=== PATIENT | male | born 1995 | race Caucasian/White ===

== ENCOUNTER 2021-04-13 10:36 | Emergency (ER) | payer OTHER ==
[2021-04-13 10:54] VITALS: BP 156/100; PULSE 106
--- NOTE | 2021-04-13 10:59 | EDM.PDOC ---
ED [facility] GENERAL MEDICAL PROBLEM - General Chief Complaint: General Stated Complaint: fell 15ft right side pain Time Seen by Provider: 04/13/21 10:50 Source of Information: Reports: Patient History Limitations: Reports: No Limitations - History of Present Illness INITIAL COMMENTS - FREE TEXT/NARRATIVE: Patient 25-year-old healthy male presenting with a chief complaint of right-si ded pain. Patient states he had a fall 2 days ago. 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 Patient states he landed on his right side. He did not strike his head or have loss of consciousness. Patient states the pain was only mild but has progressed became more severe. He reports pain primarily in the right side of his chest and right upper abdomen. No radiation of symptoms. Patient states pain is worse with deep breathing. Naprosyn has not improved symptoms at all. He denies vomiting, diarrhea, lower extremity symptoms such as numbness, tingling or weakness. Patient ambulatory today as well as after the injury. Right Chest Pain Score (Numeric/FACES): 5 - Related Data Allergies Allergy/AdvReac Type Severity Reaction Status Date / Time ibuprofen [From Motrin] Allergy Intermediate Burning Verified 04/13/21 10:54 tramadol Allergy Intermediate Hives Verified 04/13/21 10:54 codeine Allergy Cannot Verified 04/13/21 10:54 Remember Home Meds: Home Meds Cyclobenzaprine [Flexeril] 10 mg PO BID #20 tab 04/13/21 [Rx] Past Medical History - Past Health History Medical/Surgical History: Denies Medical/Surgical History Musculoskeletal History: Reports: Fracture Psychiatric History: Reports: Anxiety - Past Surgical History GI Surgical History: Reports: Hernia, Inguinal Social & Family History - Family History Family Medical History: No Pertinent Family History - Tobacco Use Tobacco Use Status *Q: Current Every Day Tobacco User Years of Tobacco use: 10 Packs/Tins Daily: 1 - Caffeine Use Caffeine Use: Reports: Coffee - Alcohol Use Days Per Week of Alcohol Use: 2 Number of Drinks Per Day: 2 Total Drinks Per Week: 4 - Recreational Drug Use Recreational Drug Use: No - Living Situation & Occupation Living situation: Reports: with Family ED ROS GENERAL - Review of Systems Review Of Systems: See Below Free Text/Narrative/Comment: In addition to that documented in the HPI above, the additional ROS was obtained: Constitutional: Denies fevers or chills Eyes: Denies vision changes ENMT: Denies sore throat CV: Denies chest pain Resp: Denies SOB GI: Denies vomiting or diarrhea : Denies painful urination MSK: Denies recent trauma Skin: Denies new rashes Neuro: Denies new numbness or tingling or weakness Endocrine: Denies unexpected weight loss Heme: Denies bleeding disorders ED EXAM, GENERAL - Physical Exam Exam: See Below Free Text/Narrative:: I have reviewed the triage vital signs Const: Well nourished, well developed, appears stated age. Comfortable in appearance. Nontoxic. Eyes: Pupils Equal and reactive to light bilaterally, no conjunctival injection HENT: No signs of trauma or swelling, Neck supple without meningismus. No midline cervical spinal tenderness or step-offs. Full range of motion of the neck. No areas of tenderness, ecchymosis or swelling to the head. CV: Regular Rate Rhythm, Warm, well-perfused extremities. equal pulses in all extremities. RESP: Unlabored respiratory effort. Bilateral breath sounds. Right-sided chest wall tenderness. No evidence of ecchymosis. No obvious deformities to the chest wall. GI: soft, non-tender, non-distended, no masses MSK: No gross deformities appreciated. Demonstrates full range of motion of the bilateral upper and lower extremities. No ecchymosis, lacerations or areas of swelling. Skin: Warm, dry. No rashes Neuro: GCS 15. Alert, finisher wallboard and plasterboard II-XII grossly intact. Sensation and motor function of extremities grossly intact. Psych: Appropriate mood and affect. Course - Vital Signs Last Recorded V/S: Last Vital Signs Temp 36.8 C 04/13/21 10:49 Pulse 106 H 04/13/21 10:49 Resp 16 04/13/21 10:49 BP 156/100 H 04/13/21 10:49 Pulse Ox 97 04/13/21 10:49 - Orders/Labs/Meds Labs: Laboratory Tests 04/13/21 04/13/21 Range/Units 11:00 11:00 WBC 5.01 (4.23-9.07) K/mm3 RBC 4.68 (4.63-6.08) M/mm3 Hgb 15.9 (13.7-17.5) gm/dl Hct 46.0 (40.1-51.0) % MCV 98.3 H D (79.0-92.2) fl MCH 34.0 H (25.7-32.2) pg MCHC 34.6 (32.2-35.5) g/dl RDW Std Deviation 43.3 (35.1-43.9) fL Plt Count 309 (163-337) K/mm3 MPV 8.9 L (9.4-12.3) fl Neut % (Auto) 39.1 (34.0-67.9) % Lymph % (Auto) 47.3 (21.8-53.1) % [place] % (Auto) 11.0 (5.3-12.2) % Eos % (Auto) 1.0 (0.8-7.0) Baso % (Auto) 1.4 H (0.1-1.2) % Neut # (Auto) 1.96 (1.78-5.38) K/mm3 Lymph # (Auto) 2.37 (1.32-3.57) K/mm3 [place] # (Auto) 0.55 (0.30-0.82) K/mm3 Eos # (Auto) 0.05 (0.04-0.54) K/mm3 Baso # (Auto) 0.07 (0.01-0.08) K/mm3 Sodium 140 (136-145) mEq/L Potassium 4.0 (3.5-5.1) mEq/L Chloride 103 (98-107) mEq/L Carbon Dioxide 24 (21-32) mEq/L Anion Gap 17.0 H (5-15) BUN 13 (7-18) mg/dL Creatinine 0.9 (0.7-1.3) mg/dL Est Cr Clr Drug Dosing 131.31 mL/min Estimated GFR (MDRD) > 60 (>60) mL/min BUN/Creatinine Ratio 14.4 (14-18) Glucose 104 H (70-99) mg/dL Calcium 8.9 (8.5-10.1) mg/dL Total Bilirubin 0.9 (0.2-1.0) mg/dL AST 52 H (15-37) U/L ALT 55 (16-63) U/L Alkaline Phosphatase 86 (46-116) U/L Total Protein 7.4 (6.4-8.2) g/dl Albumin 4.2 (3.4-5.0) g/dl Globulin 3.2 gm/dL Albumin/Globulin Ratio 1.3 (1-2) Meds: Medications Discontinued Medications Generic Name Dose Route Start Last Admin Trade Name Macy PRN Reason Stop Dose Admin Fentanyl 50 mcg 04/13/21 11:02 04/13/21 11:07 Fentanyl 100 Mcg/2 Ml Sdv IVPUSH 04/13/21 11:03 50 mcg ONETIME ONE Administration Iopamidol 50 ml 04/13/21 11:05 04/13/21 11:22 Iopamidol 612 Mg/Ml 50 Ml Sdv IVPUSH 04/13/21 11:06 50 ml ONETIME ONE Administration Iopamidol 100 ml 04/13/21 11:05 04/13/21 11:22 Iopamidol 612 Mg/Ml 100 Ml Bottle IVPUSH 04/13/21 11:06 100 ml ONETIME ONE Administration Sodium Chloride 10 ml 04/13/21 11:05 04/13/21 11:22 Sodium Chloride 0.9% 10 Ml Syringe FLUSH 10 ml ONETIME PRN Administration IV FLUSH Departure - Departure Time of Disposition: 11:44 Disposition: Home, Self-Care 01 Clinical Impression: Intercostal muscle pain - Discharge Information Prescriptions: Cyclobenzaprine [Flexeril] 10 mg PO BID #20 tab Instructions: Muscle Pain, Adult Referrals: PCP,None [Primary Care Provider] - Forms: ED Department Discharge Sepsis Event Note (ED) - Evaluation Sepsis Screening Result: No Definite Risk - Focused Exam Vital Signs: Vital Signs Temp Pulse Resp BP Pulse Ox 04/13/21 10:49 36.8 C 106 H 16 156/100 H 97 - Assessment/Plan Assessment:: Patient 25-year-old male presents to emergency room with a fall and right-sided chest pain. Patient had GCS 15 on arrival in the emergency room. Vital signs remained stable. Unremarkable ER course. Laboratory studies and CT did not show any acute abnormalities. No evidence of traumatic injury such as rib fracture, pulmonary contusion, liver injury. At this point, patient feels better will be given discharge instructions. All questions were addressed and answered. Patient agrees with plan of care.
[2021-04-13] MEDS ORDERED: fentaNYL 100 MCG/2 ML SDV IVPUSH ONE (11:02)
[2021-04-13] MEDS ORDERED: Iopamidol 612 MG/ML 50 ML SDV IVPUSH ONE (11:05)
[2021-04-13] MEDS ORDERED: Iopamidol 612 MG/ML 100 ML Bottle IVPUSH ONE (11:05)
[2021-04-13] MEDS: Sodium Chloride 0.9% 10 ML Syringe FLUSH PRN ×2 (11:10→11:22)
--- NOTE | 2021-04-13 11:41 | CT ---
CT chest Technique: Multiple axial sections through the chest were obtained. Intravenous contrast was utilized. Reconstructed coronal and sagittal images were obtained. Comparison: Prior CT chest study of 04/29/14. Findings: Thoracic aorta appears unremarkable. No mediastinal adenopathy is seen. No mediastinal hematoma is seen. No axillary adenopathy is seen. No pericardial fluid is seen. Lung window settings were reviewed. No acute parenchymal change is seen. No pleural effusion is seen. No pneumothorax is seen. Bone window settings were reviewed. Slight Schmorl's node deformities are seen within the lower thoracic spine. No definite acute osseous abnormality is appreciated. Impression: 1. Developmental spine findings as described above. 2. Nothing acute is appreciated on CT study of the chest. Diagnostic code #2 CT abdomen and pelvis Technique: Multiple axial sections were obtained from above the dome of the diaphragm inferiorly through the pubic symphysis. Intravenous contrast was utilized. No oral contrast has been given. Reconstructed coronal and sagittal images were obtained. Delayed images were also obtained through the bladder. Comparison: Prior CT abdomen and pelvis exam of 04/29/14. Findings: Liver contains no focal parenchymal abnormality. Spleen appears within normal limits. Adrenal glands appear unremarkable. Pancreas shows no discrete abnormality. Gallbladder contains no calcified gallstones. Kidneys show symmetric contrast enhancement. No hydronephrosis or other abnormality is seen. Abdominal aorta shows no aneurysm. No retroperitoneal adenopathy is seen. No mesenteric abnormalities are seen. Appendix is seen which is normal. No pelvic mass or adenopathy is seen. No free fluid or inflammatory change is seen. Delayed images show contrast within the distal ureters and within the bladder. Bone window settings were reviewed. No acute osseous finding is appreciated. Impression: 1. Nothing acute is seen on CT study of the abdomen and pelvis. Diagnostic code #1
== END 2021-04-13 11:55 | disposition home or self-care (01) ==
LOC: JD.ED 10:36
DX: R07.82 Intercostal pain (principal); Z88.5 Allergy status to narcotic agent; Z88.8 Allergy status to other drugs, medicaments and biological substances; Z72.0 Tobacco use
CPT/HCPCS: 36415; 71260; 74177; 80053; 85025; 96374; 99284; J3010; Q9967

== ENCOUNTER 2022-01-15 03:08 | Emergency (ER) | payer BC ==
[2022-01-15] MEDS ORDERED: Ketorolac 15 MG/ML SDV IVPUSH ONE (04:05)
[2022-01-15] MEDS ORDERED: Iopamidol 612 MG/ML 100 ML Bottle IVPUSH ONE (04:15)
[2022-01-15] MEDS ORDERED: Morphine 4 MG/ML Syringe IVPUSH ONE (05:17)
[2022-01-15] MEDS ORDERED: Lidocaine 1% with EPINEPHrine 1:100,000 20 ML MDV INJECT ONE (05:21)
[2022-01-15] MEDS ORDERED: Morphine 4 MG/ML VIAL IVPUSH ONE ×2 (06:24→06:38)
[2022-01-15] MEDS ORDERED: Morphine 4 MG/ML Syringe ONE (06:41)
[2022-01-15 07:00] VITALS: BP 146/104; PULSE 88
== END 2022-01-15 06:50 | disposition home or self-care (01) ==
LOC: JD.ED 03:08
DX: K61.0 Anal abscess (principal); F17.210 Nicotine dependence, cigarettes, uncomplicated; Z88.5 Allergy status to narcotic agent; Z88.6 Allergy status to analgesic agent
CPT/HCPCS: 36415; 46050; 74177; 80053; 85025; 96374; 96375; 96376; 99283; J1885; J2270; Q9967; 10060; 99284

== ENCOUNTER 2022-02-15 08:04 | Day surgery (SDC) | payer BC ==
[~2022-02-15 08:04] MED LIST: Lactated Ringers 1,000 ML IV SCH; Lidocaine 1%/Sod Bicarbonate in NS 8.4% 1 ML Syringe IDERM PRN; Sodium Chloride 0.9% 10 ML Syringe FLUSH PRN; Sodium Chloride 0.9% 10 ML Syringe FLUSH SCH; metroNIDAZOLE/Normal Saline 500 MG in Premix Bag 1 BAG IV SCH
[2022-02-15] MEDS ORDERED: Propofol 200 MG/20 ML SDV ONE ×2 (09:07→12:29)
[2022-02-15] MEDS ORDERED: fentaNYL 100 MCG/2 ML SDV ONE (09:07)
[2022-02-15] MEDS ORDERED: Midazolam 1 MG/ML 2 ML SDV ONE (09:07)
[2022-02-15] MEDS ORDERED: Ondansetron 4 MG/2 ML SDV ONE (09:11)
[2022-02-15] MEDS ORDERED: Lidocaine 1% 2 ML ONE ×2 (09:11)
[2022-02-15] MEDS ORDERED: Rocuronium 50 MG/5 ML Vial ONE (09:11)
[2022-02-15] MEDS ORDERED: Bupivacaine 0.5% 10 ML SDV ONE (09:17)
[2022-02-15] MEDS ORDERED: Lidocaine 1% with EPINEPHrine 1:100,000 10 ML MDV ONE (09:17)
[2022-02-15] MEDS ORDERED: Albuterol/Ipratropium 3.0-0.5 MG/3 ML Neb Soln NEB ONE (09:30)
[2022-02-15] MEDS ORDERED: Citric Acid/Sodium Citrate Solution 30 ML Cup PO ONE (09:30)
[2022-02-15] MEDS ORDERED: Sugammadex Sodium 200 MG/2 ML VIAL ONE (09:52)
[2022-02-15] MEDS ORDERED: Dexmedetomidine 200 MCG/2 ML SDV ONE (10:53)
[2022-02-15] MEDS ORDERED: Ondansetron 4 MG/2 ML SDV IVPUSH PRN (11:30)
[2022-02-15] MEDS ORDERED: HYDROmorphone 0.5 MG/0.5 ML Syringe IVPUSH PRN (11:30)
[2022-02-15] MEDS ORDERED: fentaNYL 100 MCG/2 ML SDV IVPUSH PRN (11:30)
[2022-02-15] MEDS ORDERED: Lactated Ringers 1,000 ML ONE (11:41)
[2022-02-15] MEDS ORDERED: oxyCODONE 5 MG Tab PO ONE (13:00)
[2022-02-15 14:23] VITALS: BP 131/101; PULSE 86
== END 2022-02-15 12:20 | disposition home or self-care (01) ==
LOC: JD.SDS 08:04
PROVIDERS: ATTEND Surgery
DX: K61.0 Anal abscess (principal); F41.1 Generalized anxiety disorder; I10 Essential (primary) hypertension; G47.00 Insomnia, unspecified; K21.9 Gastro-esophageal reflux disease without esophagitis; D64.9 Anemia, unspecified; F17.210 Nicotine dependence, cigarettes, uncomplicated; Z88.5 Allergy status to narcotic agent; Z88.8 Allergy status to other drugs, medicaments and biological substances
CPT/HCPCS: 46050; A9270; J2250; J2405; J2704; J3010; J3490; J7120; J7620-GY

== ENCOUNTER 2022-03-07 19:24 | Emergency (ER) | payer BC ==
[2022-03-07 21:17] VITALS: BP 150/90; PULSE 106
== END 2022-03-07 22:06 | disposition left against medical advice (07) ==
LOC: JD.ED 19:24
DX: Z53.21 Procedure and treatment not carried out due to patient leaving prior to being seen by health care provider (principal)

== ENCOUNTER 2022-04-06 12:31 | Emergency (ER) | payer SELFPAY ==
[2022-04-06 13:20] VITALS: BP 182/109; PULSE 136
[2022-04-06] MEDS ORDERED: Ondansetron 4 MG/2 ML SDV IVPUSH ONE (13:39)
[2022-04-06] MEDS ORDERED: Sodium Chloride 0.9% 1,000 ML IV ONE ×3 (13:39→17:58)
[2022-04-06] MEDS ORDERED: LORazepam 2 MG/ML SDV IVPUSH ONE ×2 (13:40→15:53)
[2022-04-06] MEDS ORDERED: Potassium Chloride 20 MEQ Tab.ER PO ONE (14:13)
[2022-04-06] MEDS: Potassium Chloride 10 MEQ in Premix Bag 1 BAG IV SCH ×4 (14:33→19:35)
[2022-04-06] MEDS: Magnesium Sulfate/Water 2 GM in Premix Bag 1 BAG IV SCH ×2 (19:54→21:34)
[2022-04-06] MEDS ORDERED: LORazepam 2 MG/ML SDV IVPUSH PRN (22:25)
[2022-04-06] MEDS ORDERED: Ondansetron 4 MG/2 ML SDV IVPUSH PRN (22:26)
== END 2022-04-06 23:00 | disposition home or self-care (01) ==
LOC: JD.ED 12:31
DX: F10.230 Alcohol dependence with withdrawal, uncomplicated (principal); E83.42 Hypomagnesemia; E87.6 Hypokalemia; I10 Essential (primary) hypertension; K21.9 Gastro-esophageal reflux disease without esophagitis; Z72.0 Tobacco use; Z88.6 Allergy status to analgesic agent; Z88.5 Allergy status to narcotic agent; Z79.899 Other long term (current) drug therapy
CPT/HCPCS: 36415; 80053; 80307; 83735; 85025; 96361; 96365; 96366; 96367; 96375; 96376; 99284; A9270; J2060; J2405; J3475; J3480; J7030

== ENCOUNTER 2022-04-30 08:21 | Emergency (ER) | payer SELFPAY ==
[2022-04-30] MEDS ORDERED: Ondansetron 4 MG/2 ML SDV IVPUSH ONE (08:43)
[2022-04-30] MEDS ORDERED: Sodium Chloride 0.9% 1,000 ML IV ONE (08:44)
[2022-04-30] MEDS ORDERED: Sodium Chloride 0.9% 10 ML Syringe FLUSH PRN (08:50)
[2022-04-30] MEDS ORDERED: LORazepam 2 MG/ML SDV IVPUSH ONE ×2 (08:50→13:22)
[2022-04-30] MEDS: Potassium Chloride 10 MEQ in Premix Bag 1 BAG IV SCH ×3 (10:38→13:01)
[2022-04-30 15:23] VITALS: BP 154/106; PULSE 94
== END 2022-04-30 14:18 | disposition home or self-care (01) ==
LOC: JD.ED 08:21
DX: K92.0 Hematemesis (principal); F10.930 Alcohol use, unspecified with withdrawal, uncomplicated; E87.6 Hypokalemia; I10 Essential (primary) hypertension; K21.9 Gastro-esophageal reflux disease without esophagitis; Z88.5 Allergy status to narcotic agent; Z88.8 Allergy status to other drugs, medicaments and biological substances; Z79.899 Other long term (current) drug therapy
CPT/HCPCS: 36415; 80053; 80306; 80307; 83735; 85025; 93005; 96361; 96365; 96375; 96376; 99285; J2060; J2405; J3480; J3490; J7030

== ENCOUNTER 2022-05-09 14:32 | Emergency (ER) | payer SELFPAY ==
[2022-05-09] MEDS ORDERED: Sodium Chloride 0.9% 1,000 ML IV ONE ×3 (15:09→18:25)
[2022-05-09] MEDS ORDERED: Sodium Chloride 0.9% 10 ML Syringe FLUSH PRN (15:09)
[2022-05-09] MEDS ORDERED: Metoclopramide 10 MG/2 ML SDV IVPUSH ONE (15:09)
[2022-05-09] MEDS ORDERED: Potassium Chloride 20 MEQ Tab.ER PO ONE (16:21)
[2022-05-09] MEDS ORDERED: LORazepam 2 MG/ML SDV IVPUSH ONE (16:38)
[2022-05-09 19:35] VITALS: BP 117/89; PULSE 86
== END 2022-05-09 19:05 | disposition left against medical advice (07) ==
LOC: JD.ED 14:32
DX: F10.10 Alcohol abuse, uncomplicated (principal); I10 Essential (primary) hypertension; Z88.6 Allergy status to analgesic agent; Z88.5 Allergy status to narcotic agent; Z79.899 Other long term (current) drug therapy
CPT/HCPCS: 36415; 80053; 80306; 80307; 83735; 84484; 85025; 85610; 93005; 96361; 96374; 96375; 99285; A9270; J2060; J2765; J3490; J7030; 93010; 99284

== ENCOUNTER 2022-05-16 17:56 | Emergency (ER) | payer SELFPAY ==
[2022-05-16] MEDS ORDERED: Sodium Chloride 0.9% 10 ML Syringe FLUSH PRN (19:33)
[2022-05-16] MEDS ORDERED: Ondansetron 4 MG/2 ML SDV IVPUSH ONE (19:33)
[2022-05-16] MEDS ORDERED: LORazepam 2 MG/ML SDV IVPUSH ONE ×2 (19:34→20:49)
[2022-05-16] MEDS ORDERED: Famotidine 20 MG/2 ML SDV IVPUSH ONE (19:35)
[2022-05-16] MEDS ORDERED: Sodium Chloride 0.9% 1,000 ML IV SCH (19:45)
[2022-05-16 21:24] VITALS: BP 130/90; PULSE 94
== END 2022-05-16 21:24 | disposition home or self-care (01) ==
LOC: JD.ED 17:56
DX: F10.120 Alcohol abuse with intoxication, uncomplicated (principal); I10 Essential (primary) hypertension; K21.9 Gastro-esophageal reflux disease without esophagitis; Z88.5 Allergy status to narcotic agent; Z88.8 Allergy status to other drugs, medicaments and biological substances; Z79.899 Other long term (current) drug therapy; Y90.1 Blood alcohol level of 20-39 mg/100 ml
CPT/HCPCS: 36415; 80053; 80306; 80307; 83735; 85025; 93005; 96361; 96374; 96375; 96376; 99284; J2060; J2405; J3490; J7030

== ENCOUNTER 2022-05-25 21:39 | Emergency (ER) | payer SELFPAY ==
[2022-05-25] MEDS ORDERED: Sodium Chloride 0.9% 10 ML Syringe FLUSH PRN (22:45)
[2022-05-25] MEDS ORDERED: Ondansetron 4 MG/2 ML SDV IVPUSH ONE (22:45)
[2022-05-25] MEDS ORDERED: Acetaminophen 325 MG Tab PO ONE (22:53)
[2022-05-25] MEDS: Sodium Chloride 0.9% 1,000 ML IV SCH (23:25)
[2022-05-25 23:29] LABS: ESTIMATED GFR 124 mL/min (>60)
[2022-05-26] MEDS ORDERED: Potassium Chloride 10 MEQ in Premix Bag 1 BAG IV ONE (00:51)
[2022-05-26] MEDS ORDERED: Potassium Chloride 20 MEQ Tab.ER PO ONE (00:51)
[2022-05-26] MEDS ORDERED: Sodium Chloride 0.9% 1,000 ML IV SCH (01:00)
[2022-05-26] MEDS: Sodium Chloride 0.9% 1,000 ML IV SCH (01:03)
[2022-05-26 02:48] VITALS: BP 110/53; PULSE 94
== END 2022-05-26 02:47 | disposition home or self-care (01) ==
LOC: JD.ED 21:39
DX: S06.0X0A Concussion without loss of consciousness, initial encounter (principal); F10.129 Alcohol abuse with intoxication, unspecified; E87.6 Hypokalemia; I10 Essential (primary) hypertension; K21.9 Gastro-esophageal reflux disease without esophagitis; F17.210 Nicotine dependence, cigarettes, uncomplicated; Z88.5 Allergy status to narcotic agent; Z88.8 Allergy status to other drugs, medicaments and biological substances; Y90.0 Blood alcohol level of less than 20 mg/100 ml; W00.0XXA Fall on same level due to ice and snow, initial encounter
CPT/HCPCS: 36415; 70450; 80053; 80307; 85025; 96361; 96365; 96375; 99284; A9270; J2405; J3480; J3490; J7030; 99283

== ENCOUNTER 2022-05-27 15:38 | Emergency (ER) | payer SELFPAY ==
[2022-05-27] MEDS ORDERED: Lidocaine 4% Top Soln LTA 4 ML Syringe Kit TOP ONE (17:43)
[2022-05-27] MEDS ORDERED: Lidocaine 4% Crm 5 Gm with Transparent Dressing Kit TOP ONE (17:44)
[2022-05-27] MEDS ORDERED: LORazepam 1 MG Tab PO ONE (17:44)
[2022-05-27] MEDS ORDERED: Amoxicillin/Clavulanate K 875-125 MG Tab PO ONE (18:21)
[2022-05-27] MEDS ORDERED: Lidocaine 1% 10 ML MDV ONE (18:25)
[2022-05-27 19:03] VITALS: BP 117/82; PULSE 137
== END 2022-05-27 19:00 | disposition home or self-care (01) ==
LOC: JD.ED 15:38
DX: K61.1 Rectal abscess (principal); I10 Essential (primary) hypertension; Z88.6 Allergy status to analgesic agent; Z88.5 Allergy status to narcotic agent; Z79.899 Other long term (current) drug therapy; Z72.0 Tobacco use
CPT/HCPCS: 46040; 99283; A9270

== ENCOUNTER 2022-06-04 15:13 | Emergency (ER) | payer SELFPAY ==
[2022-06-04] MEDS ORDERED: Metoclopramide 10 MG/2 ML SDV IVPUSH ONE (15:23)
[2022-06-04] MEDS ORDERED: Sodium Chloride 0.9% 10 ML Syringe FLUSH PRN (15:23)
[2022-06-04] MEDS ORDERED: Sodium Chloride 0.9% 1,000 ML IV ONE ×3 (15:23→18:42)
[2022-06-04 15:25] VITALS: BP 137/87; PULSE 90
[2022-06-05] MEDS ORDERED: Ondansetron 4 MG Tab.DIS PO ONE (02:04)
[2022-06-05] MEDS ORDERED: LORazepam 1 MG Tab PO ONE (02:04)
[2022-06-05] MEDS ORDERED: Ondansetron 4 MG/2 ML SDV IVPUSH ONE (02:23)
== END 2022-06-05 02:55 | disposition home or self-care (01) ==
LOC: JD.ED 15:13 → SUPCPDRO 15:13 → JD.ED 06-05 02:55
DX: F10.120 Alcohol abuse with intoxication, uncomplicated (principal); I10 Essential (primary) hypertension; Z72.0 Tobacco use; Z88.6 Allergy status to analgesic agent; Z88.5 Allergy status to narcotic agent; Z79.899 Other long term (current) drug therapy
CPT/HCPCS: 36415; 80053; 80306; 80307; 81001; 83735; 85025; 85610; 96361; 96374; 96375; 99284; A9270; J2405; J2765; J3490; J7030

== ENCOUNTER 2022-07-03 05:18 | Emergency (ER) | payer SELFPAY ==
[2022-07-03 05:34] VITALS: BP 146/97; PULSE 91
[2022-07-03] MEDS ORDERED: cefTRIAXone 1 GM Vial IM ONE (05:47)
[2022-07-03] MEDS ORDERED: cefTRIAXone 1 GM, Lidocaine 1% 2.1 ML IM ONE ×2 (05:53)
== END 2022-07-03 06:33 | disposition home or self-care (01) ==
LOC: JD.ED 05:18
DX: K61.0 Anal abscess (principal); I10 Essential (primary) hypertension; F32.A Depression, unspecified; Z72.0 Tobacco use; Z79.899 Other long term (current) drug therapy; Z88.5 Allergy status to narcotic agent; Z88.8 Allergy status to other drugs, medicaments and biological substances
CPT/HCPCS: 96372; 99283; J0696; 99284; J3490

== ENCOUNTER 2022-08-13 05:44 | Emergency (ER) | payer SELFPAY ==
[2022-08-13 06:13] VITALS: BP 155/110; PULSE 102
[2022-08-13] MEDS ORDERED: Sodium Chloride 0.9% 10 ML Syringe FLUSH PRN (06:14)
[2022-08-13] MEDS ORDERED: Lactated Ringers 1,000 ML IV ONE (06:21)
[2022-08-13] MEDS ORDERED: Ondansetron 4 MG/2 ML SDV IVPUSH ONE (06:22)
== END 2022-08-13 09:08 | disposition home or self-care (01) ==
LOC: JD.ED 05:44
DX: R07.89 Other chest pain (principal); E87.6 Hypokalemia; Z88.5 Allergy status to narcotic agent; F10.920 Alcohol use, unspecified with intoxication, uncomplicated; S00.411A Abrasion of right ear, initial encounter; I10 Essential (primary) hypertension; Z88.8 Allergy status to other drugs, medicaments and biological substances
CPT/HCPCS: 36415; 71045; 80053; 80307; 83605; 83690; 83735; 84100; 84484; 85025; 93005; 96361; 96374; 99285; J2405; J3490; J7120; 93010; 99284

== ENCOUNTER 2022-09-05 12:14 | Emergency (ER) | payer SELFPAY ==
[2022-09-05 12:31] VITALS: BP 150/107; PULSE 106
[2022-09-05] MEDS: LORazepam 2 MG/ML SDV IVPUSH ONE (13:26)
[2022-09-05] MEDS: Sodium Chloride 0.9% 10 ML Syringe FLUSH PRN (13:26)
[2022-09-05] MEDS: Sodium Chloride 0.9% 1,000 ML IV ONE (13:26)
[2022-09-05] MEDS: Nicotine 21 MG/24 Hr Patch TRDERM ONE (13:57)
[2022-09-05 14:07] LABS: A/G RATIO 0.9 (1-2); ALBUMIN 3.6 g/dl (3.4-5.0); ANION GAP 12.8 (5-15); BILIRUBIN TOTAL 0.6 mg/dL (0.2-1.0); BUN/CREATININE RATIO 7.1 (14-18); CALCIUM 8.5 mg/dL (8.5-10.1); CREATININE 0.7 mg/dL (0.7-1.3); EST CRCL DRUG DOSING (CG) 165.84 mL/min; ETHANOL BLOOD MEDICAL 0.34 gm% (0.00); POTASSIUM,K 2.8 mEq/L (3.5-5.1); PROTEIN TOTAL,TP 7.7 g/dl (6.4-8.2)
[2022-09-05] MEDS: Potassium Chloride 20 MEQ Tab.ER PO ONE (17:32)
[2022-09-05] MEDS: LORazepam 2 MG/ML SDV IM ONE (17:32)
== END 2022-09-05 17:42 | disposition home or self-care (01) ==
LOC: JD.ED 12:14
DX: R55 Syncope and collapse (principal); S09.90XA Unspecified injury of head, initial encounter; F10.230 Alcohol dependence with withdrawal, uncomplicated; F41.9 Anxiety disorder, unspecified; E87.6 Hypokalemia; I10 Essential (primary) hypertension; Z88.5 Allergy status to narcotic agent; Z88.6 Allergy status to analgesic agent; Z79.899 Other long term (current) drug therapy; W18.30XA Fall on same level, unspecified, initial encounter
CPT/HCPCS: 36415; 70450; 71045; 80053; 80307; 84484; 93005; 96361; 96372; 96374; 99285; A9270; J2060; J3490; J7030

== ENCOUNTER 2022-12-27 23:28 | Emergency (ER) | payer SELFPAY ==
[2022-12-27] MEDS ORDERED: Prochlorperazine 10 MG/2 ML SDV IVPUSH ONE (23:54)
[2022-12-27] MEDS ORDERED: Sodium Chloride 0.9% 10 ML Syringe FLUSH PRN (23:54)
[2022-12-27] MEDS ORDERED: Sodium Chloride 0.9% 1,000 ML IV ONE (23:54)
[2022-12-28 00:22] LABS: BASOPHILS PERCENT AUTO 0.3 % (0.0-1.0); HEMOGLOBIN 14.8 gm/dl (14.0-18.0); IMMATURE GRAN ABSOLUTE AUTO 0.05 K/mm3 (0.00-0.05); IMMATURE GRAN PERCENT AUTO 0.3 % (0.0-0.4); LYMPHOCYTES ABSOLUTE AUTO 2.8 K/mm3 (1.0-4.8); LYMPHOCYTES PERCENT AUTO 17.7 % (24.0-44.0); MEAN CORPUSCULAR HEMOGLOBIN 33.2 pg (28.0-32.0); MEAN CORPUSCULAR HGB CONC 35.2 g/dl (32.0-36.0); MEAN CORPUSCULAR VOLUME 94.2 fl (83.0-99.0); MEAN PLATELET VOLUME 8.6 fl (9.4-12.4); MONOCYTES ABSOLUTE AUTO 0.9 K/mm3 (0.0-0.8); MONOCYTES PERCENT AUTO 5.4 % (0.0-8.0); NEUTROPHILS ABSOLUTE AUTO 12.1 K/mm3 (1.8-7.7); NEUTROPHILS PERCENT AUTO 76.3 % (41.0-71.0); PLATELET COUNT,PLT 258 K/mm3 (150-400); RED BLOOD CELL COUNT 4.46 M/mm3 (4.52-5.90); WHITE BLOOD CELL COUNT,WBC 15.87 K/mm3 (3.9-11.3)
[2022-12-28 00:39] LABS: A/G RATIO 1.3 (1-2); ALBUMIN 3.6 g/dl (3.4-5.0); ANION GAP 16.7 (5-15); BILIRUBIN TOTAL 0.6 mg/dL (0.2-1.0); CALCIUM 7.9 mg/dL (8.5-10.1); CREATININE 0.8 mg/dL (0.7-1.3); EST CRCL DRUG DOSING (CG) 145.11 mL/min; ETHANOL BLOOD MEDICAL 0.2 gm% (0.00); POTASSIUM,K 3.7 mEq/L (3.5-5.1); PROTEIN TOTAL,TP 6.4 g/dl (6.4-8.2)
[2022-12-28 00:59] VITALS: BP 99/60; PULSE 92
== END 2022-12-28 01:20 | disposition home or self-care (01) ==
LOC: JD.ED 23:28
DX: K29.70 Gastritis, unspecified, without bleeding (principal); F10.220 Alcohol dependence with intoxication, uncomplicated; I10 Essential (primary) hypertension; K21.9 Gastro-esophageal reflux disease without esophagitis; Z88.5 Allergy status to narcotic agent; Z88.8 Allergy status to other drugs, medicaments and biological substances; Y90.1 Blood alcohol level of 20-39 mg/100 ml
CPT/HCPCS: 36415; 80053; 80307; 85025; 96361; 96374; 99284; J0780; J7030; 99283

== ENCOUNTER 2023-01-10 09:30 | Emergency (ER) | payer SELFPAY ==
[2023-01-10 09:52] VITALS: PULSE 116
[2023-01-10] MEDS ORDERED: Dextrose 5%-Lactated Ringers 1,000 ML IV SCH (10:00)
[2023-01-10] MEDS ORDERED: Metoclopramide 10 MG/2 ML SDV IVPUSH ONE (10:04)
[2023-01-10 10:15] LABS: BASOPHILS PERCENT AUTO 0.3 % (0.0-1.0); HEMOGLOBIN 15.9 gm/dl (14.0-18.0); IMMATURE GRAN ABSOLUTE AUTO 0.04 K/mm3 (0.00-0.05); IMMATURE GRAN PERCENT AUTO 0.4 % (0.0-0.4); LYMPHOCYTES ABSOLUTE AUTO 1.5 K/mm3 (1.0-4.8); LYMPHOCYTES PERCENT AUTO 13.9 % (24.0-44.0); MEAN CORPUSCULAR HEMOGLOBIN 32.4 pg (28.0-32.0); MEAN CORPUSCULAR HGB CONC 36.1 g/dl (32.0-36.0); MEAN PLATELET VOLUME 8.2 fl (9.4-12.4); MONOCYTES ABSOLUTE AUTO 0.8 K/mm3 (0.0-0.8); NEUTROPHILS ABSOLUTE AUTO 8.4 K/mm3 (1.8-7.7); NEUTROPHILS PERCENT AUTO 78.4 % (41.0-71.0); PLATELET COUNT,PLT 234 K/mm3 (150-400); WHITE BLOOD CELL COUNT,WBC 10.67 K/mm3 (3.9-11.3)
[2023-01-10] MEDS ORDERED: Potassium Chloride 10 MEQ in Premix Bag 1 BAG IV SCH (10:15)
[2023-01-10 10:16] LABS: MEAN CORPUSCULAR VOLUME 89.8 fl (83.0-99.0)
[2023-01-10 10:30] LABS: INR 0.99; PROTHROMBIN TIME 10.6 SECONDS (9.7-12.0)
[2023-01-10 10:37] LABS: A/G RATIO 1.3 (1-2); ALANINE AMINOTRANSFERASE,ALT 37 U/L (16-63); ALBUMIN 4.1 g/dl (3.4-5.0); ALKALINE PHOSPHATASE 143 U/L (46-116); ANION GAP 17.4 (5-15); ASPARTATE AMNIOTRANSFERASE,AST 36 U/L (15-37); BLOOD UREA NITROGEN,BUN 10 mg/dL (7-18); BUN/CREATININE RATIO 12.5 (14-18); C-REACTIVE PROTEIN <0.2 mg/dL (<1.0); CALCIUM 9.3 mg/dL (8.5-10.1); CARBON DIOXIDE,CO2 26 mEq/L (21-32); CHLORIDE,CL 98 mEq/L (98-107); CREATININE 0.8 mg/dL (0.7-1.3); EST CRCL DRUG DOSING (CG) 145.11 mL/min; ESTIMATED GFR 123 mL/min (>60); ETHANOL BLOOD MEDICAL 0.02 gm% (0.00); GLUCOSE RANDOM 105 mg/dL (70-99); LIPASE 607 U/L (73-393); MAGNESIUM 1.8 mg/dL (1.8-2.4); POTASSIUM,K 3.4 mEq/L (3.5-5.1); PROTEIN TOTAL,TP 7.3 g/dl (6.4-8.2); SODIUM,NA 138 mEq/L (136-145)
[2023-01-10 12:56] VITALS: BP 162/98
== END 2023-01-10 12:46 | disposition home or self-care (01) ==
LOC: JD.ED 09:30
DX: K85.20 Alcohol induced acute pancreatitis without necrosis or infection (principal); E86.0 Dehydration; E87.6 Hypokalemia; E87.1 Hypo-osmolality and hyponatremia; I10 Essential (primary) hypertension; F10.20 Alcohol dependence, uncomplicated; Y90.0 Blood alcohol level of less than 20 mg/100 ml; F17.210 Nicotine dependence, cigarettes, uncomplicated; Z88.5 Allergy status to narcotic agent; Z88.6 Allergy status to analgesic agent
CPT/HCPCS: 36415; 80053; 80307; 82009; 83690; 83735; 85025; 85610; 86140; 96361; 96365; 96375; 99284; J2765; J3480; J7121

== ENCOUNTER 2023-03-29 23:54 | Emergency (ER) | payer SELFPAY ==
[2023-03-30 02:07] LABS: BASOPHILS ABSOLUTE AUTO 0.1 K/mm3 (0.0-0.2); EOSINOPHILS ABSOLUTE AUTO 0.1 K/mm3 (0.0-0.4); EOSINOPHILS PERCENT AUTO 1.3 % (0.0-6.0); HEMATOCRIT 38.1 % (42.0-52.0); IMMATURE GRAN ABSOLUTE AUTO 0.09 K/mm3 (0.00-0.05); IMMATURE GRAN PERCENT AUTO 1.1 % (0.0-0.4); LYMPHOCYTES ABSOLUTE AUTO 3.5 K/mm3 (1.0-4.8); LYMPHOCYTES PERCENT AUTO 41.5 % (24.0-44.0); MEAN CORPUSCULAR HEMOGLOBIN 33.2 pg (28.0-32.0); MEAN CORPUSCULAR HGB CONC 34.1 g/dl (32.0-36.0); MEAN CORPUSCULAR VOLUME 97.2 fl (83.0-99.0); MEAN PLATELET VOLUME 8.5 fl (9.4-12.4); MONOCYTES ABSOLUTE AUTO 0.6 K/mm3 (0.0-0.8); NEUTROPHILS PERCENT AUTO 48.1 % (41.0-71.0); PLATELET COUNT,PLT 286 K/mm3 (150-400); RED BLOOD CELL COUNT 3.92 M/mm3 (4.52-5.90); WHITE BLOOD CELL COUNT,WBC 8.34 K/mm3 (3.9-11.3)
[2023-03-30 02:42] LABS: A/G RATIO 1.1 (1-2); ALANINE AMINOTRANSFERASE,ALT 19 U/L (16-63); ALBUMIN 3.7 g/dl (3.4-5.0); ALKALINE PHOSPHATASE 105 U/L (46-116); ANION GAP 11.2 (5-15); ASPARTATE AMNIOTRANSFERASE,AST 10 U/L (15-37); BILIRUBIN TOTAL 0.4 mg/dL (0.2-1.0); BLOOD UREA NITROGEN,BUN 18 mg/dL (7-18); BUN/CREATININE RATIO 22.5 (14-18); CALCIUM 8.5 mg/dL (8.5-10.1); CARBON DIOXIDE,CO2 25 mEq/L (21-32); CHLORIDE,CL 111 mEq/L (98-107); CREATININE 0.8 mg/dL (0.7-1.3); ESTIMATED GFR 123 mL/min (>60); ETHANOL BLOOD MEDICAL 0.24 gm% (0.00); GLUCOSE RANDOM 109 mg/dL (70-99); POTASSIUM,K 4.2 mEq/L (3.5-5.1); PROTEIN TOTAL,TP 7.1 g/dl (6.4-8.2); SODIUM,NA 143 mEq/L (136-145)
[2023-03-30 03:16] VITALS: BP 128/65; PULSE 85
== END 2023-03-30 03:20 ==
LOC: JD.ED 23:54
DX: S00.83XA Contusion of other part of head, initial encounter (principal); F10.920 Alcohol use, unspecified with intoxication, uncomplicated; I10 Essential (primary) hypertension; Z88.5 Allergy status to narcotic agent; Z88.8 Allergy status to other drugs, medicaments and biological substances; Y04.8XXA Assault by other bodily force, initial encounter
CPT/HCPCS: 36415; 70450; 70450-26; 70486; 70486-26; 80053; 80307; 85025; 99284

== ENCOUNTER 2023-04-09 09:50 | Emergency (ER) | payer SELFPAY ==
[2023-04-09 11:31] LABS: BASOPHILS PERCENT AUTO 0.5 % (0.0-1.0); EOSINOPHILS PERCENT AUTO 0.2 % (0.0-6.0); HEMATOCRIT 40.3 % (42.0-52.0); HEMOGLOBIN 13.9 gm/dl (14.0-18.0); IMMATURE GRAN ABSOLUTE AUTO 0.03 K/mm3 (0.00-0.05); IMMATURE GRAN PERCENT AUTO 0.4 % (0.0-0.4); LYMPHOCYTES ABSOLUTE AUTO 2.7 K/mm3 (1.0-4.8); LYMPHOCYTES PERCENT AUTO 33.4 % (24.0-44.0); MEAN CORPUSCULAR HEMOGLOBIN 33.6 pg (28.0-32.0); MEAN CORPUSCULAR HGB CONC 34.5 g/dl (32.0-36.0); MEAN CORPUSCULAR VOLUME 97.3 fl (83.0-99.0); MEAN PLATELET VOLUME 8.5 fl (9.4-12.4); MONOCYTES ABSOLUTE AUTO 0.5 K/mm3 (0.0-0.8); MONOCYTES PERCENT AUTO 6.2 % (0.0-8.0); NEUTROPHILS ABSOLUTE AUTO 4.9 K/mm3 (1.8-7.7); NEUTROPHILS PERCENT AUTO 59.3 % (41.0-71.0); PLATELET COUNT,PLT 269 K/mm3 (150-400); RED BLOOD CELL COUNT 4.14 M/mm3 (4.52-5.90); WHITE BLOOD CELL COUNT,WBC 8.21 K/mm3 (3.9-11.3)
[2023-04-09 12:00] LABS: A/G RATIO 1.2 (1-2); ALBUMIN 3.7 g/dl (3.4-5.0); ANION GAP 11.8 (5-15); BILIRUBIN TOTAL 0.8 mg/dL (0.2-1.0); CALCIUM 8.4 mg/dL (8.5-10.1); CREATININE 0.8 mg/dL (0.7-1.3); EST CRCL DRUG DOSING (CG) 145.11 mL/min; ETHANOL BLOOD MEDICAL 0.28 gm% (0.00); POTASSIUM,K 3.8 mEq/L (3.5-5.1); PROTEIN TOTAL,TP 6.9 g/dl (6.4-8.2); TSH 0.631 uIU/mL (0.358-3.74)
[2023-04-09 12:21] LABS: BARBITURATE SCREEN,URINE NEGATIVE (CUTOFF=200); BENZODIAZEPINES SCREEN,URINE NEGATIVE (CUTOFF=150); BUPRENORPHINE SCREEN,URINE NEGATIVE (CUTOFF=10); METHADONE SCREEN, URINE NEGATIVE (CUT0FF=200); METHAMPHETAMINES SCREEN, URINE NEGATIVE (CUTOFF=500); OXYCODONE SCREEN,URINE NEGATIVE (CUT0FF=100); THC SCREEN,URINE 20 NG/ML NEGATIVE (CUTOFF=50)
[2023-04-09 12:22] LABS: AMPHETAMINES SCREEN, URINE NEGATIVE (CUTOFF=500)
[2023-04-09 13:58] VITALS: BP 137/98; PULSE 88
== END 2023-04-09 12:45 | disposition home or self-care (01) ==
LOC: JD.ED 09:50
DX: F32.A Depression, unspecified (principal); F10.220 Alcohol dependence with intoxication, uncomplicated; F10.280 Alcohol dependence with alcohol-induced anxiety disorder; F17.210 Nicotine dependence, cigarettes, uncomplicated; I10 Essential (primary) hypertension; Z88.6 Allergy status to analgesic agent; Z88.5 Allergy status to narcotic agent
CPT/HCPCS: 36415; 80053; 80143; 80179; 80306; 80307; 84443; 85025; 99284

== ENCOUNTER 2023-08-27 16:17 | Emergency (ER) | payer SELFPAY ==
[2023-08-27 17:23] LABS: BASOPHILS ABSOLUTE AUTO 0.1 K/mm3 (0.0-0.2); BASOPHILS PERCENT AUTO 0.9 % (0.0-1.0); EOSINOPHILS PERCENT AUTO 0.2 % (0.0-6.0); HEMATOCRIT 45.5 % (42.0-52.0); HEMOGLOBIN 16.5 gm/dl (14.0-18.0); IMMATURE GRAN ABSOLUTE AUTO 0.02 K/mm3 (0.00-0.05); IMMATURE GRAN PERCENT AUTO 0.2 % (0.0-0.4); LYMPHOCYTES ABSOLUTE AUTO 2.9 K/mm3 (1.0-4.8); LYMPHOCYTES PERCENT AUTO 35.1 % (24.0-44.0); MEAN CORPUSCULAR HEMOGLOBIN 33.7 pg (28.0-32.0); MEAN CORPUSCULAR HGB CONC 36.3 g/dl (32.0-36.0); MEAN PLATELET VOLUME 8.5 fl (9.4-12.4); MONOCYTES ABSOLUTE AUTO 0.9 K/mm3 (0.0-0.8); MONOCYTES PERCENT AUTO 11.6 % (0.0-8.0); NEUTROPHILS ABSOLUTE AUTO 4.2 K/mm3 (1.8-7.7); PLATELET COUNT,PLT 280 K/mm3 (150-400); RED BLOOD CELL COUNT 4.89 M/mm3 (4.52-5.90); WHITE BLOOD CELL COUNT,WBC 8.12 K/mm3 (3.9-11.3)
[2023-08-27 17:43] LABS: A/G RATIO 1.2 (1-2); ALBUMIN 4.1 g/dl (3.4-5.0); ANION GAP 16.1 (5-15); BILIRUBIN TOTAL 0.7 mg/dL (0.2-1.0); BUN/CREATININE RATIO 3.3 (14-18); CALCIUM 8.7 mg/dL (8.5-10.1); CREATININE 0.9 mg/dL (0.7-1.3); EST CRCL DRUG DOSING (CG) 116.11 mL/min; ETHANOL BLOOD MEDICAL 0.28 gm% (0.00); POTASSIUM,K 3.1 mEq/L (3.5-5.1); PROTEIN TOTAL,TP 7.5 g/dl (6.4-8.2)
[2023-08-27] MEDS: Potassium Chloride 10 MEQ Tab.ER PO ONE (18:22)
[2023-08-27 19:06] VITALS: BP 127/97; PULSE 124
== END 2023-08-27 18:26 | disposition home or self-care (01) ==
LOC: JD.ED 16:17
DX: F10.129 Alcohol abuse with intoxication, unspecified (principal); E87.6 Hypokalemia; R74.01 Elevation of levels of liver transaminase levels; I10 Essential (primary) hypertension; K21.9 Gastro-esophageal reflux disease without esophagitis; F17.210 Nicotine dependence, cigarettes, uncomplicated; Z79.899 Other long term (current) drug therapy; Z88.6 Allergy status to analgesic agent; Z88.5 Allergy status to narcotic agent; Y90.8 Blood alcohol level of 240 mg/100 ml or more
CPT/HCPCS: 36415; 80053; 80307; 85025; 99283; A9270; 99284

== ENCOUNTER 2023-08-28 00:36 | Emergency (ER) | payer SELFPAY ==
[2023-08-28] MEDS: Sodium Chloride 0.9% 10 ML Syringe FLUSH PRN (00:57)
[2023-08-28 00:59] LABS: BASOPHILS ABSOLUTE AUTO 0.1 K/mm3 (0.0-0.2); BASOPHILS PERCENT AUTO 0.8 % (0.0-1.0); EOSINOPHILS PERCENT AUTO 0.3 % (0.0-6.0); HEMATOCRIT 45.4 % (42.0-52.0); HEMOGLOBIN 16.7 gm/dl (14.0-18.0); IMMATURE GRAN ABSOLUTE AUTO 0.02 K/mm3 (0.00-0.05); IMMATURE GRAN PERCENT AUTO 0.2 % (0.0-0.4); LYMPHOCYTES ABSOLUTE AUTO 2.4 K/mm3 (1.0-4.8); LYMPHOCYTES PERCENT AUTO 22.9 % (24.0-44.0); MEAN CORPUSCULAR HEMOGLOBIN 33.9 pg (28.0-32.0); MEAN CORPUSCULAR HGB CONC 36.8 g/dl (32.0-36.0); MEAN CORPUSCULAR VOLUME 92.3 fl (83.0-99.0); MEAN PLATELET VOLUME 8.7 fl (9.4-12.4); MONOCYTES ABSOLUTE AUTO 1.2 K/mm3 (0.0-0.8); NEUTROPHILS ABSOLUTE AUTO 6.9 K/mm3 (1.8-7.7); NEUTROPHILS PERCENT AUTO 64.8 % (41.0-71.0); PLATELET COUNT,PLT 286 K/mm3 (150-400); RED BLOOD CELL COUNT 4.92 M/mm3 (4.52-5.90); WHITE BLOOD CELL COUNT,WBC 10.67 K/mm3 (3.9-11.3)
[2023-08-28 01:25] LABS: A/G RATIO 1.3 (1-2); ALBUMIN 4.3 g/dl (3.4-5.0); ANION GAP 16.2 (5-15); BILIRUBIN TOTAL 1.1 mg/dL (0.2-1.0); CALCIUM 9.7 mg/dL (8.5-10.1); EST CRCL DRUG DOSING (CG) 115.04 mL/min; ETHANOL BLOOD MEDICAL 0.07 gm% (0.00); MAGNESIUM 1.6 mg/dL (1.8-2.4); POTASSIUM,K 3.2 mEq/L (3.5-5.1); PROTEIN TOTAL,TP 7.7 g/dl (6.4-8.2)
[2023-08-28 02:45] LABS: AMPHETAMINES SCREEN, URINE PRESUMPTIVE POSITIVE (CUTOFF=500); BARBITURATE SCREEN,URINE NEGATIVE (CUTOFF=200); METHAMPHETAMINES SCREEN, URINE PRESUMPTIVE POSITIVE (CUTOFF=500)
[2023-08-28 02:46] LABS: BENZODIAZEPINES SCREEN,URINE NEGATIVE (CUTOFF=150); METHADONE SCREEN, URINE NEGATIVE (CUT0FF=200); OXYCODONE SCREEN,URINE NEGATIVE (CUT0FF=100)
[2023-08-28 02:47] LABS: BUPRENORPHINE SCREEN,URINE PRESUMPTIVE POSITIVE (CUTOFF=10); THC SCREEN,URINE 20 NG/ML PRESUMPTIVE POSITIVE (CUTOFF=50)
[2023-08-28] MEDS: Ondansetron 4 MG/2 ML SDV IVPUSH ONE (02:59)
[2023-08-28] MEDS: PHENobarbital Sodium 65 MG/ML SDV IVPUSH ONE (03:04)
[2023-08-28] MEDS ORDERED: PHENobarbital Sodium 65 MG/ML SDV IVPUSH ONE (06:45)
[2023-08-28 08:51] VITALS: BP 133/95; PULSE 101
== END 2023-08-28 07:35 ==
LOC: JD.ED 00:36
DX: F10.139 Alcohol abuse with withdrawal, unspecified (principal); I10 Essential (primary) hypertension; F17.210 Nicotine dependence, cigarettes, uncomplicated; F41.9 Anxiety disorder, unspecified; Z88.5 Allergy status to narcotic agent; Z88.6 Allergy status to analgesic agent; Z79.899 Other long term (current) drug therapy; Y90.9 Presence of alcohol in blood, level not specified
CPT/HCPCS: 36415; 80053; 80306; 80307; 83735; 84484; 85025; 93005; 96374; 96375; 99285; J2405; J2560; J3360; J3490; 93010; 99284

== ENCOUNTER 2023-08-29 06:35 | Emergency (ER) | payer SELFPAY ==
[2023-08-29 07:03] LABS: BASOPHILS ABSOLUTE AUTO 0.1 K/mm3 (0.0-0.2); BASOPHILS PERCENT AUTO 0.7 % (0.0-1.0); EOSINOPHILS PERCENT AUTO 0.1 % (0.0-6.0); HEMATOCRIT 45.1 % (42.0-52.0); HEMOGLOBIN 16.5 gm/dl (14.0-18.0); IMMATURE GRAN ABSOLUTE AUTO 0.07 K/mm3 (0.00-0.05); IMMATURE GRAN PERCENT AUTO 0.5 % (0.0-0.4); LYMPHOCYTES ABSOLUTE AUTO 1.4 K/mm3 (1.0-4.8); LYMPHOCYTES PERCENT AUTO 9.3 % (24.0-44.0); MEAN CORPUSCULAR HEMOGLOBIN 34.7 pg (28.0-32.0); MEAN CORPUSCULAR HGB CONC 36.6 g/dl (32.0-36.0); MEAN CORPUSCULAR VOLUME 94.7 fl (83.0-99.0); MEAN PLATELET VOLUME 9.1 fl (9.4-12.4); MONOCYTES ABSOLUTE AUTO 0.7 K/mm3 (0.0-0.8); MONOCYTES PERCENT AUTO 4.4 % (0.0-8.0); NEUTROPHILS ABSOLUTE AUTO 12.5 K/mm3 (1.8-7.7); PLATELET COUNT,PLT 335 K/mm3 (150-400); RED BLOOD CELL COUNT 4.76 M/mm3 (4.52-5.90); WHITE BLOOD CELL COUNT,WBC 14.69 K/mm3 (3.9-11.3)
[2023-08-29 07:04] LABS: APPEARANCE,URINE CLEAR (Clear); BILIRUBIN,URINE NEGATIVE (Negative); COLOR,URINE YELLOW (Yellow); GLUCOSE,URINE NEGATIVE (Negative); KETONES,URINE TRACE (Negative); LEUKOCYTE ESTERASE,URINE NEGATIVE (Negative); NITRITE,URINE NEGATIVE (Negative); OCCULT BLOOD,URINE TRACE-LYSED (Negative); PH,URINE 6.5 (5.0-8.0); PROTEIN,URINE 2+ (Negative); UROBILINOGEN,URINE 0.2 (0.2-1.0)
[2023-08-29 07:30] LABS: THC SCREEN,URINE 20 NG/ML PRESUMPTIVE POSITIVE (CUTOFF=50)
[2023-08-29 07:31] LABS: A/G RATIO 1.2 (1-2); ALBUMIN 4.3 g/dl (3.4-5.0); AMPHETAMINES SCREEN, URINE PRESUMPTIVE POSITIVE (CUTOFF=500); ANION GAP 31.3 (5-15); BARBITURATE SCREEN,URINE PRESUMPTIVE POSITIVE (CUTOFF=200); BENZODIAZEPINES SCREEN,URINE PRESUMPTIVE POSITIVE (CUTOFF=150); BILIRUBIN TOTAL 0.9 mg/dL (0.2-1.0); CALCIUM 9.6 mg/dL (8.5-10.1); CREATININE 1.5 mg/dL (0.7-1.3); EST CRCL DRUG DOSING (CG) 74.35 mL/min; ETHANOL BLOOD MEDICAL 0.06 gm% (0.00); METHADONE SCREEN, URINE NEGATIVE (CUT0FF=200); METHAMPHETAMINES SCREEN, URINE PRESUMPTIVE POSITIVE (CUTOFF=500); OXYCODONE SCREEN,URINE NEGATIVE (CUT0FF=100); POTASSIUM,K 3.3 mEq/L (3.5-5.1)
[2023-08-29] MEDS: Benzocaine 20% Topical Spray UD MUCMEM ONE (07:31)
[2023-08-29 07:32] LABS: BUPRENORPHINE SCREEN,URINE NEGATIVE (CUTOFF=10)
[2023-08-29 08:03] LABS: BACTERIA,URINE FEW /hpf (FEW); EPITHELIAL CELLS,URINE 0-5 /hpf (0-5); MUCUS,URINE NOT SEEN /hpf (FEW); WBC,URINE 0-5 /hpf (0-5)
[2023-08-29] MEDS: Sodium Chloride 0.9% 1,000 ML IV ONE (08:14)
[2023-08-29] MEDS: Sodium Chloride 0.9% 10 ML Syringe FLUSH PRN (08:16)
[2023-08-29] MEDS: LORazepam 2 MG/ML SDV IVPUSH ONE (09:35)
[2023-08-29 11:09] VITALS: BP 132/97; PULSE 120
== END 2023-08-29 11:09 | disposition home or self-care (01) ==
LOC: JD.ED 06:35
DX: F10.930 Alcohol use, unspecified with withdrawal, uncomplicated (principal); I10 Essential (primary) hypertension; Z88.6 Allergy status to analgesic agent; Z88.5 Allergy status to narcotic agent; Y90.0 Blood alcohol level of less than 20 mg/100 ml
CPT/HCPCS: 36415; 80053; 80306; 80307; 81001; 85025; 96374; 99284; A9270; J2060; J3490; J7030

== ENCOUNTER 2023-09-12 05:04 | Emergency (ER) | payer SELFPAY ==
[2023-09-12 05:08] VITALS: BP 170/133; PULSE 134
[2023-09-12] MEDS: Sodium Chloride 0.9% 10 ML Syringe FLUSH PRN (05:48)
[2023-09-12] MEDS: Sodium Chloride 0.9% 1,000 ML IV SCH (05:48)
[2023-09-12 06:09] LABS: BASOPHILS ABSOLUTE AUTO 0.1 K/mm3 (0.0-0.2); BASOPHILS PERCENT AUTO 0.3 % (0.0-1.0); EOSINOPHILS PERCENT AUTO 0.1 % (0.0-6.0); HEMATOCRIT 45.3 % (42.0-52.0); HEMOGLOBIN 16.7 gm/dl (14.0-18.0); IMMATURE GRAN ABSOLUTE AUTO 0.06 K/mm3 (0.00-0.05); IMMATURE GRAN PERCENT AUTO 0.4 % (0.0-0.4); LYMPHOCYTES ABSOLUTE AUTO 2.2 K/mm3 (1.0-4.8); LYMPHOCYTES PERCENT AUTO 12.8 % (24.0-44.0); MEAN CORPUSCULAR HEMOGLOBIN 34.7 pg (28.0-32.0); MEAN CORPUSCULAR HGB CONC 36.9 g/dl (32.0-36.0); MEAN CORPUSCULAR VOLUME 94.2 fl (83.0-99.0); MEAN PLATELET VOLUME 9.7 fl (9.4-12.4); MONOCYTES ABSOLUTE AUTO 1.1 K/mm3 (0.0-0.8); MONOCYTES PERCENT AUTO 6.3 % (0.0-8.0); NEUTROPHILS ABSOLUTE AUTO 13.7 K/mm3 (1.8-7.7); NEUTROPHILS PERCENT AUTO 80.1 % (41.0-71.0); PLATELET COUNT,PLT 326 K/mm3 (150-400); RED BLOOD CELL COUNT 4.81 M/mm3 (4.52-5.90); WHITE BLOOD CELL COUNT,WBC 17.09 K/mm3 (3.9-11.3)
[2023-09-12 06:13] LABS: ANION GAP 17.7 (5-15); CHLORIDE,CL 96 mEq/L (98-107); POTASSIUM,K 2.7 mEq/L (3.5-5.1); SODIUM,NA 134 mEq/L (136-145)
[2023-09-12 06:14] LABS: ALBUMIN 3.8 g/dl (3.4-5.0); BILIRUBIN TOTAL 1.4 mg/dL (0.2-1.0); BLOOD UREA NITROGEN,BUN 2 mg/dL (7-18); BUN/CREATININE RATIO 2.2 (14-18); CALCIUM 8.7 mg/dL (8.5-10.1); CREATININE 0.9 mg/dL (0.7-1.3); ESTIMATED GFR 118 mL/min (>60); GLUCOSE RANDOM 116 mg/dL (70-99); PROTEIN TOTAL,TP 7.6 g/dl (6.4-8.2)
[2023-09-12 06:15] LABS: ALANINE AMINOTRANSFERASE,ALT 46 U/L (16-63); ALKALINE PHOSPHATASE 147 U/L (46-116); ASPARTATE AMNIOTRANSFERASE,AST 41 U/L (15-37); MAGNESIUM 1.4 mg/dL (1.8-2.4)
[2023-09-12 06:16] LABS: C-REACTIVE PROTEIN 2.12 mg/dL (<0.30); LIPASE 20 U/L (16-77); TROPONIN I HIGH SENSITIVITY 471 pg/mL (<=76)
[2023-09-12 06:18] LABS: CARBON DIOXIDE,CO2 23 mEq/L (21-32)
[2023-09-12 06:28] LABS: D-DIMER QUANTITATIVE 0.4 mg/L (0.19-0.50); PROTHROMBIN TIME 10.7 SECONDS (9.7-12.0)
[2023-09-12 06:29] LABS: PTT,PARTIAL THROMBOPLSTIN TIME 30.8 SECONDS (21.7-31.4)
[2023-09-12] MEDS ORDERED: Lactated Ringers 1,000 ML IV SCH (06:45)
[2023-09-12] MEDS: Potassium Chloride 10 MEQ in Premix Bag 1 BAG IV ONE (07:05)
[2023-09-12] MEDS: Potassium Chloride 20 MEQ Tab.ER PO ONE (07:05)
[2023-09-12] MEDS ORDERED: Heparin Sodium 5,000 Units/ML Vial IVPUSH ONE ×2 (08:34)
[2023-09-12] MEDS: Heparin Sodium/D5W 25,000 UNITS/500 ML BAG IV SCH (08:51)
[2023-09-12] MEDS: Aspirin 81 MG Tab.Chew PO ONE (08:52)
[2023-09-12] MEDS: atorvaSTATin 40 MG Tab PO ONE (08:53)
[2023-09-12] MEDS: Heparin Sodium 5,000 Units/ML Vial IVPUSH ONE (08:55)
[2023-09-12] MEDS: Magnesium Sulfate/Water 2 GM in Premix Bag 1 BAG IV ONE (08:59)
[2023-09-12 10:16] LABS: LACTIC ACID 0.5 mmol/L (0.4-2.0)
[2023-09-12 10:46] LABS: AMPHETAMINES SCREEN, URINE PRESUMPTIVE POSITIVE (CUTOFF=500); METHAMPHETAMINES SCREEN, URINE PRESUMPTIVE POSITIVE (CUTOFF=500)
[2023-09-12 10:47] LABS: BARBITURATE SCREEN,URINE NEGATIVE (CUTOFF=200); BENZODIAZEPINES SCREEN,URINE PRESUMPTIVE POSITIVE (CUTOFF=150); BUPRENORPHINE SCREEN,URINE NEGATIVE (CUTOFF=10); METHADONE SCREEN, URINE NEGATIVE (CUT0FF=200); OXYCODONE SCREEN,URINE NEGATIVE (CUT0FF=100); THC SCREEN,URINE 20 NG/ML NEGATIVE (CUTOFF=50)
[2023-09-12 11:07] LABS: CORONAVIRUS COVID-19 NAA NEGATIVE (NEGATIVE); INFLUENZA A NAA NEGATIVE (NEGATIVE); RESPIRATORY SYNCYTIAL VIR NAA NEGATIVE (NEGATIVE)
== END 2023-09-12 10:15 ==
LOC: JD.ED 05:04
DX: I21.4 Non-ST elevation (NSTEMI) myocardial infarction (principal); F17.210 Nicotine dependence, cigarettes, uncomplicated; Z88.8 Allergy status to other drugs, medicaments and biological substances; Z88.5 Allergy status to narcotic agent
CPT/HCPCS: 0241U; 36415; 71045; 80053; 80306; 80307; 83605; 83690; 83735; 83880; 84484; 85025; 85379; 85610; 85652; 85730; 86140; 93005; 96361; 96365; 96367; 96368; 99285; A9270; J1644; J3475; J3480; J3490; J7030; 93010

== ENCOUNTER 2023-12-09 12:07 | Emergency (ER) | payer SELFPAY ==
[2023-12-09] MEDS: Sodium Chloride 0.9% 1,000 ML IV ONE ×2 (12:42→15:17)
[2023-12-09 12:56] LABS: BASOPHILS ABSOLUTE AUTO 0.1 K/mm3 (0.0-0.2); BASOPHILS PERCENT AUTO 0.3 % (0.0-1.0); HEMOGLOBIN 16.2 gm/dl (14.0-18.0); IMMATURE GRAN ABSOLUTE AUTO 0.05 K/mm3 (0.00-0.05); IMMATURE GRAN PERCENT AUTO 0.3 % (0.0-0.4); LYMPHOCYTES ABSOLUTE AUTO 2.1 K/mm3 (1.0-4.8); LYMPHOCYTES PERCENT AUTO 12.3 % (24.0-44.0); MEAN CORPUSCULAR HEMOGLOBIN 33.6 pg (28.0-32.0); MEAN CORPUSCULAR VOLUME 93.4 fl (83.0-99.0); MEAN PLATELET VOLUME 9.1 fl (9.4-12.4); MONOCYTES ABSOLUTE AUTO 1.2 K/mm3 (0.0-0.8); NEUTROPHILS ABSOLUTE AUTO 13.6 K/mm3 (1.8-7.7); NEUTROPHILS PERCENT AUTO 80.1 % (41.0-71.0); PLATELET COUNT,PLT 328 K/mm3 (150-400); RED BLOOD CELL COUNT 4.82 M/mm3 (4.52-5.90); WHITE BLOOD CELL COUNT,WBC 16.94 K/mm3 (3.9-11.3)
[2023-12-09 13:05] LABS: APPEARANCE,URINE CLEAR (Clear); BILIRUBIN,URINE 1+ (Negative); COLOR,URINE DARK YELLOW (Yellow); GLUCOSE,URINE NEGATIVE (Negative); KETONES,URINE 1+ (Negative); LEUKOCYTE ESTERASE,URINE NEGATIVE (Negative); NITRITE,URINE NEGATIVE (Negative); OCCULT BLOOD,URINE 1+ (Negative); PH,URINE 5.5 (5.0-8.0); PROTEIN,URINE 3+ (Negative); UROBILINOGEN,URINE 0.2 (0.2-1.0)
[2023-12-09 13:11] LABS: A/G RATIO 1.7 (1-2); ALANINE AMINOTRANSFERASE,ALT 31 U/L (16-63); ALBUMIN 5.5 g/dl (3.4-5.0); ALKALINE PHOSPHATASE 108 U/L (46-116); ANION GAP 19.6 (5-15); ASPARTATE AMNIOTRANSFERASE,AST 37 U/L (15-37); BILIRUBIN TOTAL 2.4 mg/dL (0.2-1.0); BLOOD UREA NITROGEN,BUN 23 mg/dL (7-18); BUN/CREATININE RATIO 17.7 (14-18); CALCIUM 9.8 mg/dL (8.5-10.1); CARBON DIOXIDE,CO2 24 mEq/L (21-32); CHLORIDE,CL 94 mEq/L (98-107); CREATININE 1.3 mg/dL (0.7-1.3); EST CRCL DRUG DOSING (CG) 88.49 mL/min; ESTIMATED GFR 76 mL/min (>60); GLUCOSE RANDOM 194 mg/dL (70-99); POTASSIUM,K 3.6 mEq/L (3.5-5.1); PROTEIN TOTAL,TP 8.7 g/dl (6.4-8.2); SODIUM,NA 134 mEq/L (136-145)
[2023-12-09 13:12] LABS: TROPONIN I HIGH SENSITIVITY < 4 pg/mL (<=76)
[2023-12-09 13:52] LABS: BARBITURATE SCREEN,URINE NEGATIVE (CUTOFF=200); BENZODIAZEPINES SCREEN,URINE NEGATIVE (CUTOFF=150); BUPRENORPHINE SCREEN,URINE NEGATIVE (CUTOFF=10); METHADONE SCREEN, URINE NEGATIVE (CUT0FF=200); METHAMPHETAMINES SCREEN, URINE PRESUMPTIVE POSITIVE (CUTOFF=500); OXYCODONE SCREEN,URINE NEGATIVE (CUT0FF=100); THC SCREEN,URINE 20 NG/ML NEGATIVE (CUTOFF=50)
[2023-12-09 14:02] LABS: AMPHETAMINES SCREEN, URINE PRESUMPTIVE POSITIVE (CUTOFF=500)
[2023-12-09 14:27] LABS: BACTERIA,URINE FEW /hpf (FEW); EPITHELIAL CELLS,URINE 0-5 /hpf (0-5); MUCUS,URINE MODERATE /hpf (FEW); RBC,URINE 0-5 /hpf (0-5)
[2023-12-09 14:28] LABS: HYALINE CASTS,URINE 0-5 /lpf (0-5)
[2023-12-09] MEDS: Lactated Ringers 1,000 ML IV ONE (15:16)
[2023-12-09 16:29] VITALS: BP 132/89; PULSE 114
== END 2023-12-09 16:32 | disposition home or self-care (01) ==
LOC: JD.ED 12:07
DX: R07.89 Other chest pain (principal); E86.0 Dehydration; F15.10 Other stimulant abuse, uncomplicated; I10 Essential (primary) hypertension; Z79.899 Other long term (current) drug therapy; Z88.5 Allergy status to narcotic agent; Z88.8 Allergy status to other drugs, medicaments and biological substances
CPT/HCPCS: 36415; 71045; 80053; 80306; 80307; 81001; 84484; 85025; 86140; 93005; 96360; 96361; 99285; J7030; J7120

== ENCOUNTER 2023-12-10 11:52 | Emergency (ER) | payer SELFPAY ==
[2023-12-10 12:18] LABS: BASOPHILS PERCENT AUTO 0.3 % (0.0-1.0); HEMATOCRIT 41.1 % (42.0-52.0); HEMOGLOBIN 14.7 gm/dl (14.0-18.0); IMMATURE GRAN ABSOLUTE AUTO 0.03 K/mm3 (0.00-0.05); IMMATURE GRAN PERCENT AUTO 0.3 % (0.0-0.4); LYMPHOCYTES ABSOLUTE AUTO 1.2 K/mm3 (1.0-4.8); LYMPHOCYTES PERCENT AUTO 11.2 % (24.0-44.0); MEAN CORPUSCULAR HEMOGLOBIN 33.8 pg (28.0-32.0); MEAN CORPUSCULAR HGB CONC 35.8 g/dl (32.0-36.0); MEAN CORPUSCULAR VOLUME 94.5 fl (83.0-99.0); MEAN PLATELET VOLUME 9.1 fl (9.4-12.4); MONOCYTES ABSOLUTE AUTO 0.7 K/mm3 (0.0-0.8); MONOCYTES PERCENT AUTO 6.7 % (0.0-8.0); NEUTROPHILS ABSOLUTE AUTO 8.7 K/mm3 (1.8-7.7); NEUTROPHILS PERCENT AUTO 81.5 % (41.0-71.0); RED BLOOD CELL COUNT 4.35 M/mm3 (4.52-5.90)
[2023-12-10] MEDS ORDERED: Sodium Chloride 0.9% 10 ML Syringe FLUSH PRN (12:32)
[2023-12-10] MEDS: OLANZapine 5 MG Tab PO ONE (12:33)
[2023-12-10 12:42] LABS: PLATELET COUNT,PLT 219 K/mm3 (150-400)
[2023-12-10 12:45] LABS: A/G RATIO 1.4 (1-2); ALBUMIN 4.6 g/dl (3.4-5.0); BILIRUBIN TOTAL 3.6 mg/dL (0.2-1.0); BUN/CREATININE RATIO 15.6 (14-18); C-REACTIVE PROTEIN 0.56 mg/dL (<0.30); CALCIUM 9.4 mg/dL (8.5-10.1); CREATININE 0.9 mg/dL (0.7-1.3); EST CRCL DRUG DOSING (CG) 127.82 mL/min; MAGNESIUM 1.5 mg/dL (1.8-2.4); PROTEIN TOTAL,TP 7.9 g/dl (6.4-8.2); TSH 0.9 uIU/mL (0.358-3.74)
[2023-12-10] MEDS: Labetalol 100 MG/20 ML MDV IVPUSH ONE (12:46)
[2023-12-10] MEDS: Sodium Chloride 0.9% 1,000 ML IV ONE (12:46)
[2023-12-10 16:40] LABS: APPEARANCE,URINE CLEAR (Clear); BILIRUBIN,URINE 1+ (Negative); COLOR,URINE YELLOW (Yellow); GLUCOSE,URINE NEGATIVE (Negative); KETONES,URINE 3+ (Negative); LEUKOCYTE ESTERASE,URINE NEGATIVE (Negative); NITRITE,URINE NEGATIVE (Negative); OCCULT BLOOD,URINE TRACE-LYSED (Negative); PH,URINE 6.5 (5.0-8.0); PROTEIN,URINE 1+ (Negative)
[2023-12-10 16:45] LABS: BACTERIA,URINE FEW /hpf (FEW); SQUAMOUS EPITHELIAL CELLS,UR 0-5 /hpf (0-5); WBC,URINE 0-5 /hpf (0-5)
[2023-12-10 16:46] LABS: MUCUS,URINE FEW /hpf (FEW)
[2023-12-10 16:49] LABS: BARBITURATE SCREEN,URINE NEGATIVE (CUTOFF=200); BENZODIAZEPINES SCREEN,URINE NEGATIVE (CUTOFF=150); BUPRENORPHINE SCREEN,URINE NEGATIVE (CUTOFF=10); METHADONE SCREEN, URINE NEGATIVE (CUT0FF=200); METHAMPHETAMINES SCREEN, URINE PRESUMPTIVE POSITIVE (CUTOFF=500); OXYCODONE SCREEN,URINE NEGATIVE (CUT0FF=100); THC SCREEN,URINE 20 NG/ML NEGATIVE (CUTOFF=50)
[2023-12-10 16:56] LABS: AMPHETAMINES SCREEN, URINE PRESUMPTIVE POSITIVE (CUTOFF=500)
[2023-12-10 19:48] VITALS: BP 144/92; PULSE 90
== END 2023-12-10 19:42 | disposition home or self-care (01) ==
LOC: JD.ED 11:52
DX: F15.10 Other stimulant abuse, uncomplicated (principal); I10 Essential (primary) hypertension; K21.9 Gastro-esophageal reflux disease without esophagitis; Z79.899 Other long term (current) drug therapy; Z88.6 Allergy status to analgesic agent; Z88.5 Allergy status to narcotic agent
CPT/HCPCS: 36415; 80053; 80143; 80179; 80306; 80307; 81001; 83735; 84443; 84484; 85025; 86140; 93005; 96374; 99285; A9270; J1921; J7030